=== PATIENT | female | born 2000 | race Caucasian/White ===

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

== ENCOUNTER 2022-01-01 11:11 | Emergency (ER) | payer OTHER ==
[2022-01-01 11:19] VITALS: BP 115/79
--- NOTE | 2022-01-01 12:15 | XRAY Report ---
PROCEDURE: Knee 4 View LT INDICATIONS: Trauma TECHNIQUE: 4 views of the left knee(s) were acquired. COMPARISON: None. FINDINGS: Bones: No fractures or dislocations. No suspicious bony lesions. Soft tissues: Minimal joint effusion. No suspicious soft tissue calcifications. IMPRESSION: No evidence acute bony abnormality of the left knee. If clinical suspicion and/or symptoms persist, further assessment with repeat plain films or advanced imaging (e.g., CT, MRI, or bone scan) may be helpful for further assessment. Reviewed by: Víctor Eugene MD on 01/01/2022 12:14 PM PDT Approved by: Víctor Eugene MD on 01/01/2022 12:14 PM PDT Station ID: [id number]
--- NOTE | 2022-01-01 12:37 | ED Physician Documentation ---
PD HPI LOWER EXT INJURY - Stated complaint Stated Complaint: FALL - Chief complaint Chief Complaint: Trauma Ext - History obtained from History obtained from: Patient - Additional information Additional information: Patient is a 21-year-old female presenting for evaluation of left knee pain since this morning. She was walking out of her bedroom and tripped over a basket of yarn that she did not see. She did not hit her head. She reports feeling a pop in her left knee. She denies pain at rest but has pain with ambulation and with moving it. She denies previous injury to the knee. She denies pain elsewhere. Review of Systems Constitutional: denies: Fever Nose: denies: Congestion Cardiac: denies: Chest pain / pressure Respiratory: denies: Dyspnea GI: denies: Abdominal Pain Musculoskeletal: reports: Joint pain Neurologic: denies: Head injury PD PAST MEDICAL HISTORY - Past Medical History Past Medical History: Yes Respiratory: Asthma [employer]: Ovarian cysts Musculoskeletal: Fibromyalgia - Past Surgical History Past Surgical History: Yes - Present Medications Home Medications: Ambulatory Orders Medication Instructions Recorded Confirmed Albuterol Sulfate [Albuterol 8.5 gm IH .FREQ 02/06/14 01/01/22 Sulfate Hfa] Fluticasone [Flonase] 1 sprays CRISTHIAN DAILY #1 bottle 03/04/20 01/01/22 Meloxicam [Mobic] 15 mg PO DAILY 03/04/20 01/01/22 diphenhydrAMINE [Benadryl] 25 mg PO HS #20 capsule 03/04/20 01/01/22 - Allergies Allergies/Adverse Reactions: Allergies Allergy/AdvReac Type Severity Reaction Status Date / Time Penicillins Allergy Intermediate Rash Verified 01/01/22 11:19 - Social History Does the pt smoke?: No Smoking Status: Never smoker Does the pt drink ETOH?: No Does the pt have substance abuse?: No - Immunizations Immunizations are current?: Yes - POLST Patient has POLST: No PD ED PE NORMAL - General General: Alert and oriented X 3, No acute distress, Well developed/nourished - HEENT HEENT: Atraumatic - Cardiac Cardiac: Strong equal pulses - Respiratory Respiratory: No respiratory distress - Extremities Extremities: No deformity, No edema, No calf tenderness / cord, Other (Pedal pulses intact). No: No tenderness to palpate (Tenderness to medial left knee; Able to fully extend and flex) - Neuro Neuro: No motor deficit, No sensory deficit Results - Vitals Vitals: Vital Signs - 24 hr 01/01/22 11:15 Temperature 36.5 C Heart Rate 86 Respiratory 16 Rate Blood Pressure 115/79 O2 Saturation 99 Oxygen O2 Source Room air PD MEDICAL DECISION MAKING - ED course Complexity details: reviewed results, re-evaluated patient, d/w patient ED course: Patient with knee injury after tripping over a basket. No significant swelling noted on exam. No laxity noted. Neurovascularly intact With x-ray that is negative for fracture dislocation.Patient was placed into a knee immobilizer and given crutches. She is comfortable with plan for follow-up with her primary care doctor and advised on concerning symptoms to return for. Departure - Departure Disposition: 01 Home, Self Care Clinical Impression: Left knee injury Qualifiers: Encounter type: initial encounter Qualified Code(s): S89.92XA - Unspecified injury of left lower leg, initial encounter Condition: Stable Instructions: ED Sprain Knee Comments: You were evaluated for an injury to your left knee. Your x-ray does not show a broken or out of place bone. There are other structures in the knee such as ligaments that could be injured. We have given you a knee immobilizer and crutches and I would encourage use of these as long as it is hurting to walk.If your pain is not getting better by Thursday I would recommend close follow-up with your primary care doctor. If you have any worsening symptoms such as pain in a new area then please return to the emergency department. Forms: Activity restrictions Discharge Date/Time: 01/01/22 13:07
== END 2022-01-01 13:07 | disposition home or self-care (01) ==
LOC: ED 11:11
DX: S89.92XA Unspecified injury of left lower leg, initial encounter (principal); W01.0XXA Fall on same level from slipping, tripping and stumbling without subsequent striking against object, initial encounter; Y93.01 Activity, walking, marching and hiking; Y92.009 Unspecified place in unspecified non-institutional (private) residence as the place of occurrence of the external cause
CPT/HCPCS: 99282; 99283